=== PATIENT | male | born 1955 | race African-American/Black ===

== ENCOUNTER 2020-01-19 15:27 | Outpatient (CLI) | payer OTHER | END 2020-01-19 15:34 | disposition home or self-care (01) | LOC: LAB 15:27 | PROVIDERS: ATTEND Urology | DX: R97.20 Elevated prostate specific antigen [PSA] (principal) ==

== ENCOUNTER 2020-01-29 07:11 | Outpatient (CLI) | payer OTHER | END 2020-01-29 13:50 | disposition home or self-care (01) | LOC: SONOGRAMA 07:11 | PROVIDERS: ATTEND Urology | DX: R97.20 Elevated prostate specific antigen [PSA] (principal) ==

== ENCOUNTER → 2020-03-03 14:58 | Outpatient (CLI) | payer OTHER | END | disposition home or self-care (01) | LOC: LAB 14:58 → EDBD 14:58 | PROVIDERS: ATTEND Urology | DX: N30.00 Acute cystitis without hematuria (principal) ==

== ENCOUNTER 2020-03-07 09:54 | Outpatient (CLI) | payer OTHER | END 2020-03-07 10:04 | disposition home or self-care (01) | LOC: SONOGRAMA 09:54 → MAMO-SONO 10:00 → SONOGRAMA 10:04 | PROVIDERS: ATTEND Urology | DX: N43.40 Spermatocele of epididymis, unspecified (principal); N10 Acute pyelonephritis ==

== ENCOUNTER 2020-05-26 10:55 | Outpatient (CLI) | payer OTHER | END 2020-05-26 11:12 | disposition HB | LOC: MRI 10:55 | PROVIDERS: ATTEND Urology | DX: M48.07 Spinal stenosis, lumbosacral region (principal); N50.811 Right testicular pain | CPT/HCPCS: 72148 ==

== ENCOUNTER → 2020-07-22 | Outpatient (CLI) | payer OTHER | END | disposition home or self-care (01) | LOC: MRI 06:23 | PROVIDERS: ATTEND Psychiatry & Neurology Clinical Neurophysiology | DX: N50.811 Right testicular pain (principal); G54.1 Lumbosacral plexus disorders | CPT/HCPCS: 72195; 74181 ==

== ENCOUNTER → 2020-10-17 14:56 | Outpatient (CLI) | payer OTHER | END | disposition home or self-care (01) | LOC: LAB 14:56 | PROVIDERS: ATTEND Urology | DX: N30.00 Acute cystitis without hematuria (principal) ==

== ENCOUNTER → 2020-10-24 | Outpatient (CLI) | payer OTHER | END | disposition home or self-care (01) | LOC: TOM 15:51 | PROVIDERS: ATTEND Orthopaedic Surgery | DX: M25.551 Pain in right hip (principal) ==

== ENCOUNTER 2021-01-30 06:21 | Outpatient (CLI) | payer OTHER | END 2021-01-30 15:00 | disposition home or self-care (01) | LOC: LAB 06:21 | PROVIDERS: ATTEND Orthopaedic Surgery | DX: E56.1 Deficiency of vitamin K (principal); E21.2 Other hyperparathyroidism; E88.89 Other specified metabolic disorders; M81.8 Other osteoporosis without current pathological fracture ==